=== PATIENT | female | born 1945 | race Caucasian/White ===

== ENCOUNTER 2020-03-11 01:34 | Inpatient (IN) ==
[2020-03-11] MEDS ORDERED: PIPERACILLIN/TAZOBACTAM 3,375 MG in SODIUM CHLORIDE 0.9% 100 ML IV STA (02:14)
[2020-03-11] MEDS ORDERED: SODIUM CHLORIDE 0.9% 1,000 ML IV STA (02:14)
[2020-03-11 02:23] LABS: Basophils # 0.1 10*3/uL (0.0-0.2); Basophils % 0.3 % (0.0-0.8); Eosinophils # 0.1 10*3/uL (0.0-0.87); Eosinophils % 0.3 % (0.00-10.9); Hemoglobin 12.6 GM/DL (12.0-16.0); Immature Granulocytes % 1.1 %; Immature Granulocytes Absolute 0.24 #; Lymphocytes # 0.8 10*3/uL (1.4-4.0); Lymphocytes % 3.9 % (21.3-54.2); Mean Corpuscular Volume 83.5 FL (87-102); Mean Platelet Volume 11.6 FL (9.6-12.0); Neutrophils % 88.4 % (38.7-73.9); Platelet Count 112 T/CUMM (130-400); Red Blood Count 4.31 MC/CUMM (3.8-5.5); Red Cell Distribution Width 13.2 % (9.3-17.3)
[2020-03-11 02:33] LABS: INR 1.2
[2020-03-11] MEDS: dilTIAZem Drip 125 MG/125 ML PREMIX IV SCH (02:37)
[2020-03-11 02:39] LABS: Bilirubin,Urine Negative (Negative); Blood, Urine Moderate mg/dL (Negative); Glucose,Urine (UA) Negative (Negative); Ketones,Urine Negative (Negative); Mucus,Urine Occasional /LPF (Occasional); Nitrite,Urine Negative (Negative); Protein,Urine 100 MG/DL; RBC,Urine 5 /HPF (0-4); Squamous Epithelial Cell,Urine Occasional /HPF (0-10); Urine Appearance CLOUDY (Clear); Urine Color Amber (Yellow); Urine Specific Gravity 1.013 (1.001-1.035); WBC,Urine 436 /HPF (0-6)
[2020-03-11 02:46] LABS: Alanine Aminotransferase 26 U/L (13-56); Albumin 2.3 G/DL (3.4-5.0); Alkaline Phosphatase 181 U/L (45-117); Amylase 9 U/L (25-115); Aspartate Amino Transferase 26 U/L (0-37); Blood Urea Nitrogen 34 MG/DL (7-18); Calcium 7.8 MG/DL (8.5-10.1); Estimated Glom Filtration Rate 38 ML/MIN; Ferritin 165.8 ng/ml (8-252); Glucose 79 MG/DL (74-106); Osmolality,Calculated 272.4 MOS/KG (273-304); Total Protein 5.6 G/DL (6.4-8.3); Troponin I 0.273 NG/ML (0.00-0.045)
[2020-03-11] MEDS ORDERED: POTASSIUM CHLORIDE RIDER 20 MEQ in PREMIX 1 EACH IV STA ×2 (02:56→03:02)
[2020-03-11] MEDS ORDERED: POTASSIUM CHLORIDE 20 MEQ TABLET PO STA (04:39)
[2020-03-11] MEDS ORDERED: ONDANSETRON 4 MG/2 ML VIAL IV PRN (05:15)
[2020-03-11] MEDS ORDERED: DEXTROSE 50% 25 GM/50 ML VIAL IV PRN (05:15)
[2020-03-11] MEDS ORDERED: DOCUSATE SODIUM 100 MG CAPSULE PO PRN (05:15)
[2020-03-11] MEDS ORDERED: GLUCAGON 1 MG VIAL IM PRN (05:15)
[2020-03-11] MEDS ORDERED: MAGNESIUM SULF RIDER 4 GM in PREMIX 1 EACH IV PRN (05:18)
[2020-03-11] MEDS ORDERED: MAGNESIUM SULF RIDER 2 GM in PREMIX 1 EACH IV PRN (05:18)
[2020-03-11] MEDS ORDERED: DEXTROSE 50% 25 GM/50 ML SYRINGE IV PRN (05:21)
[2020-03-11 05:24] LABS: Band Neutrophils 3 % (0-10); Hypochromasia 1+; Lymphocytes 4 % (20-55); Metamyelocytes 1 %; Microcytosis 1+; Platelet Estimate Adequate; Segmented Neutrophils 88 % (50-85); Total Cells Counted 100
[2020-03-11] MEDS: SODIUM CHLORIDE 0.9% 1,000 ML IV SCH ×3 (06:10→21:57)
[2020-03-11] MEDS: PANTOPRAZOLE 40 MG TABLET PO SCH (09:00)
[2020-03-11] MEDS: ACETAMINOPHEN 325 MG TABLET PO PRN ×2 (09:01→21:08)
[2020-03-11] MEDS: POTASSIUM CHLORIDE 20 MEQ TABLET PO PRN ×2 (09:01→11:11)
[2020-03-11] MEDS: SOTALOL 80 MG TABLET PO SCH ×2 (10:11→21:12)
[2020-03-11] MEDS: RIVAROXABAN 20 MG TABLET PO SCH (10:11)
[2020-03-11] MEDS: PIPERACILLIN/TAZOBACTAM 3,375 MG in SODIUM CHLORIDE 0.9% 100 ML IV SCH ×2 (11:50→21:08)
[2020-03-12] MEDS: SODIUM CHLORIDE 0.9% 1,000 ML IV SCH ×3 (02:15→12:58)
[2020-03-12] MEDS: dilTIAZem Drip 125 MG/125 ML PREMIX IV SCH (02:31)
[2020-03-12] MEDS: PIPERACILLIN/TAZOBACTAM 3,375 MG in SODIUM CHLORIDE 0.9% 100 ML IV SCH ×3 (04:02→18:08)
[2020-03-12 06:10] LABS: Basophils # 0.1 10*3/uL (0.0-0.2); Basophils % 0.4 % (0.0-0.8); Eosinophils # 0.2 10*3/uL (0.0-0.87); Eosinophils % 1.2 % (0.00-10.9); Hematocrit 35.5 VOL% (35.7-47.0); Hemoglobin 12.2 GM/DL (12.0-16.0); Immature Granulocytes % 6.2 %; Immature Granulocytes Absolute 0.99 #; Lymphocytes # 0.9 10*3/uL (1.4-4.0); Lymphocytes % 5.4 % (21.3-54.2); Mean Corpuscular HGB Conc 34.4 GM/DL (32-36); Mean Corpuscular Volume 84.5 FL (87-102); Monocytes % 8.8 % (1.7-12.7); Red Cell Distribution Width 13.7 % (9.3-17.3); White Blood Count 15.9 T/CUMM (4-12)
[2020-03-12 06:18] LABS: Platelet Count 85 T/CUMM (130-400)
[2020-03-12 06:31] LABS: Band Neutrophils 1 % (0-10); Eosinophils 3 % (0-10); Lymphocytes 4 % (20-55); Microcytosis Slight; Platelet Estimate Decreased; Segmented Neutrophils 86 % (50-85); Total Cells Counted 100
[2020-03-12 07:24] LABS: Albumin 1.9 G/DL (3.4-5.0); Bilirubin,Total 2.4 MG/DL (0.2-1.0); Calcium 8.2 MG/DL (8.5-10.1); Osmolality,Calculated 274.2 MOS/KG (273-304); Total Protein 5.4 G/DL (6.4-8.3)
[2020-03-12] MEDS: PANTOPRAZOLE 40 MG TABLET PO SCH (09:10)
[2020-03-12] MEDS: RIVAROXABAN 20 MG TABLET PO SCH (09:10)
[2020-03-12] MEDS: SOTALOL 80 MG TABLET PO SCH ×2 (09:10→21:57)
[2020-03-12] MEDS: MONTELUKAST 10 MG TABLET PO SCH (12:57)
[2020-03-12] MEDS: VENLAFAXINE XR 75 MG CAPSULE PO SCH (12:58)
[2020-03-13] MEDS: SODIUM CHLORIDE 0.9% 1,000 ML IV SCH ×3 (02:13→21:02)
[2020-03-13 05:37] LABS: Basophils # 0.1 10*3/uL (0.0-0.2); Basophils % 0.4 % (0.0-0.8); Eosinophils # 0.2 10*3/uL (0.0-0.87); Eosinophils % 1.1 % (0.00-10.9); Hematocrit 33.2 VOL% (35.7-47.0); Hemoglobin 11.5 GM/DL (12.0-16.0); Immature Granulocytes % 2.5 %; Immature Granulocytes Absolute 0.33 #; Lymphocytes # 1.2 10*3/uL (1.4-4.0); Lymphocytes % 9.2 % (21.3-54.2); Mean Corpuscular HGB Conc 34.6 GM/DL (32-36); Mean Corpuscular Volume 84.5 FL (87-102); Mean Platelet Volume 11.1 FL (9.6-12.0); Monocytes % 11.6 % (1.7-12.7); Neutrophils % 75.2 % (38.7-73.9); Platelet Count 111 T/CUMM (130-400); Red Blood Count 3.93 MC/CUMM (3.8-5.5); Red Cell Distribution Width 13.7 % (9.3-17.3); White Blood Count 13.4 T/CUMM (4-12)
[2020-03-13] MEDS: PIPERACILLIN/TAZOBACTAM 3,375 MG in SODIUM CHLORIDE 0.9% 100 ML IV SCH ×2 (05:51→10:53)
[2020-03-13 06:03] LABS: Osmolality,Calculated 275.1 MOS/KG (273-304)
[2020-03-13 06:10] LABS: Anisocytosis Slight; Band Neutrophils 6 % (0-10); Eosinophils 3 % (0-10); Lymphocytes 7 % (20-55); Platelet Estimate Adequate; Segmented Neutrophils 74 % (50-85); Total Cells Counted 100
[2020-03-13] MEDS: VENLAFAXINE XR 75 MG CAPSULE PO SCH (08:50)
[2020-03-13] MEDS: POTASSIUM CHLORIDE 20 MEQ TABLET PO SCH (08:50)
[2020-03-13] MEDS: SOTALOL 80 MG TABLET PO SCH ×2 (08:50→20:57)
[2020-03-13] MEDS: RIVAROXABAN 20 MG TABLET PO SCH (08:50)
[2020-03-13] MEDS: MONTELUKAST 10 MG TABLET PO SCH (08:50)
[2020-03-13] MEDS: PANTOPRAZOLE 40 MG TABLET PO SCH (08:51)
[2020-03-13] MEDS ORDERED: POTASSIUM CHLORIDE 20 MEQ TABLET PO SCH (09:00)
[2020-03-13] MEDS: MEROPENEM 500 MG in SODIUM CHLORIDE 0.9% 100 ML IV SCH (15:15)
[2020-03-14] MEDS: MEROPENEM 500 MG in SODIUM CHLORIDE 0.9% 100 ML IV SCH ×3 (00:47→14:30)
[2020-03-14 02:45] LABS: Calcium 7.9 MG/DL (8.5-10.1); Osmolality,Calculated 273.1 MOS/KG (273-304)
[2020-03-14 02:53] LABS: Basophils # 0.1 10*3/uL (0.0-0.2); Basophils % 0.5 % (0.0-0.8); Eosinophils # 0.2 10*3/uL (0.0-0.87); Eosinophils % 1.1 % (0.00-10.9); Hemoglobin 11.9 GM/DL (12.0-16.0); Immature Granulocytes % 4.3 %; Immature Granulocytes Absolute 0.63 #; Lymphocytes # 1.2 10*3/uL (1.4-4.0); Lymphocytes % 8.1 % (21.3-54.2); Mean Corpuscular Volume 84.3 FL (87-102); Mean Platelet Volume 11.1 FL (9.6-12.0); Monocytes % 9.8 % (1.7-12.7); Neutrophils % 76.2 % (38.7-73.9); Platelet Count 149 T/CUMM (130-400); Red Blood Count 4.15 MC/CUMM (3.8-5.5); Red Cell Distribution Width 14.2 % (9.3-17.3); White Blood Count 14.5 T/CUMM (4-12)
[2020-03-14] MEDS: SODIUM CHLORIDE 0.9% 1,000 ML IV SCH ×3 (06:10→21:50)
[2020-03-14 07:14] LABS: Band Neutrophils 1 % (0-10); Eosinophils 3 % (0-10); Lymphocytes 9 % (20-55); Metamyelocytes 2 %; Segmented Neutrophils 76 % (50-85); Total Cells Counted 100
[2020-03-14 07:30] LABS: Anisocytosis Slight; Macrocytosis Slight; Platelet Estimate Adequate
[2020-03-14] MEDS: MONTELUKAST 10 MG TABLET PO SCH (09:12)
[2020-03-14] MEDS: VENLAFAXINE XR 75 MG CAPSULE PO SCH (09:12)
[2020-03-14] MEDS: PANTOPRAZOLE 40 MG TABLET PO SCH (09:12)
[2020-03-14] MEDS: RIVAROXABAN 20 MG TABLET PO SCH (09:12)
[2020-03-14] MEDS: SOTALOL 80 MG TABLET PO SCH ×2 (09:12→21:42)
[2020-03-14] MEDS: POTASSIUM CHLORIDE 20 MEQ TABLET PO SCH (09:12)
[2020-03-14] MEDS: ACETAMINOPHEN 325 MG TABLET PO PRN (22:07)
[2020-03-15] MEDS: MEROPENEM 500 MG in SODIUM CHLORIDE 0.9% 100 ML IV SCH ×3 (01:18→17:34)
[2020-03-15] MEDS: ZALEPLON 5 MG CAPSULE PO PRN ×2 (01:23→21:20)
[2020-03-15] MEDS: SODIUM CHLORIDE 0.9% 1,000 ML IV SCH ×3 (01:56→19:00)
[2020-03-15 06:06] LABS: Basophils # 0.1 10*3/uL (0.0-0.2); Basophils % 0.5 % (0.0-0.8); Eosinophils # 0.2 10*3/uL (0.0-0.87); Eosinophils % 1.1 % (0.00-10.9); Hematocrit 39.4 VOL% (35.7-47.0); Immature Granulocytes Absolute 1.11 #; Lymphocytes # 1.6 10*3/uL (1.4-4.0); Lymphocytes % 8.4 % (21.3-54.2); Mean Corpuscular Volume 88.5 FL (87-102); Mean Platelet Volume 10.3 FL (9.6-12.0); Monocytes % 8.5 % (1.7-12.7); Neutrophils % 75.5 % (38.7-73.9); Platelet Count 243 T/CUMM (130-400); Red Blood Count 4.45 MC/CUMM (3.8-5.5); Red Cell Distribution Width 14.2 % (9.3-17.3); White Blood Count 18.6 T/CUMM (4-12)
[2020-03-15 06:38] LABS: Calcium 7.8 MG/DL (8.5-10.1); Osmolality,Calculated 270.2 MOS/KG (273-304)
[2020-03-15 06:39] LABS: Osmolality,Calculated 270.2 MOS/KG (273-304)
[2020-03-15 07:10] LABS: Eosinophils 1 % (0-10); Lymphocytes 7 % (20-55); Platelet Estimate Normal; Polychromasia Slight; Segmented Neutrophils 86 % (50-85); Total Cells Counted 100
[2020-03-15] MEDS: SOTALOL 80 MG TABLET PO SCH ×2 (09:22→21:20)
[2020-03-15] MEDS: PANTOPRAZOLE 40 MG TABLET PO SCH (09:22)
[2020-03-15] MEDS: VENLAFAXINE XR 75 MG CAPSULE PO SCH (09:23)
[2020-03-15] MEDS: RIVAROXABAN 20 MG TABLET PO SCH (09:23)
[2020-03-15] MEDS: POTASSIUM CHLORIDE 20 MEQ TABLET PO SCH (09:23)
[2020-03-15] MEDS: MONTELUKAST 10 MG TABLET PO SCH (09:23)
[2020-03-15] MEDS: ACETAMINOPHEN 325 MG TABLET PO PRN (21:23)
[2020-03-16] MEDS: MEROPENEM 500 MG in SODIUM CHLORIDE 0.9% 100 ML IV SCH ×3 (01:23→16:21)
[2020-03-16] MEDS: SODIUM CHLORIDE 0.9% 1,000 ML IV SCH ×4 (01:23→18:11)
[2020-03-16] MEDS: ACETAMINOPHEN 325 MG TABLET PO PRN ×3 (03:12→22:11)
[2020-03-16 08:14] LABS: Basophils # 0.1 10*3/uL (0.0-0.2); Basophils % 0.3 % (0.0-0.8); Eosinophils # 0.2 10*3/uL (0.0-0.87); Hematocrit 36.5 VOL% (35.7-47.0); Hemoglobin 12.8 GM/DL (12.0-16.0); Immature Granulocytes % 5.1 %; Immature Granulocytes Absolute 1.08 #; Lymphocytes # 1.4 10*3/uL (1.4-4.0); Lymphocytes % 6.4 % (21.3-54.2); Mean Corpuscular HGB Conc 35.1 GM/DL (32-36); Mean Corpuscular Volume 84.3 FL (87-102); Mean Platelet Volume 10.5 FL (9.6-12.0); Monocytes % 6.9 % (1.7-12.7); Neutrophils % 80.3 % (38.7-73.9); Platelet Count 242 T/CUMM (130-400); Red Blood Count 4.33 MC/CUMM (3.8-5.5); Red Cell Distribution Width 13.9 % (9.3-17.3); White Blood Count 21.2 T/CUMM (4-12)
[2020-03-16 08:43] LABS: Calcium 7.9 MG/DL (8.5-10.1); Osmolality,Calculated 268.2 MOS/KG (273-304)
[2020-03-16] MEDS: POTASSIUM CHLORIDE 20 MEQ TABLET PO SCH (09:16)
[2020-03-16] MEDS: PANTOPRAZOLE 40 MG TABLET PO SCH (09:16)
[2020-03-16] MEDS: SOTALOL 80 MG TABLET PO SCH ×2 (09:16→22:08)
[2020-03-16] MEDS: VENLAFAXINE XR 75 MG CAPSULE PO SCH (09:16)
[2020-03-16] MEDS: MONTELUKAST 10 MG TABLET PO SCH (09:16)
[2020-03-16] MEDS: NYSTATIN 500,000 UNIT/5 ML UDCUP SWISH/SWAL SCH ×4 (10:00→22:11)
[2020-03-16 11:30] LABS: Calcium 7.8 MG/DL (8.5-10.1); Osmolality,Calculated 270.2 MOS/KG (273-304)
[2020-03-16 11:43] LABS: Lymphocytes 4 % (20-55); Metamyelocytes 1 %; Myelocytes 1 %; Polychromasia Slight; Segmented Neutrophils 88 % (50-85); Total Cells Counted 100
[2020-03-16 11:44] LABS: Platelet Estimate Normal
[2020-03-16 13:47] LABS: Bacteria,Urine Occasional /HPF (Few); Bilirubin,Urine Negative (Negative); Blood, Urine Moderate mg/dL (Negative); Glucose,Urine (UA) Negative (Negative); Ketones,Urine Negative (Negative); Mucus,Urine Occasional /LPF (Occasional); Nitrite,Urine Negative (Negative); Protein,Urine Negative; RBC,Urine 6 /HPF (0-4); Squamous Epithelial Cell,Urine Occasional /HPF (0-10); Urine Appearance Slightly Hazy (Clear); Urine Color Yellow (Yellow); Urine Specific Gravity 1.011 (1.001-1.035); Urine Urobilinogen < 2.0 EU/DL (0.2-1.0); WBC,Urine 49 /HPF (0-6)
[2020-03-16] MEDS: ZALEPLON 5 MG CAPSULE PO PRN (22:15)
[2020-03-17] MEDS: MEROPENEM 500 MG in SODIUM CHLORIDE 0.9% 100 ML IV SCH ×3 (00:58→16:35)
[2020-03-17 05:25] LABS: Basophils # 0.1 10*3/uL (0.0-0.2); Basophils % 0.4 % (0.0-0.8); Eosinophils # 0.2 10*3/uL (0.0-0.87); Hematocrit 37.9 VOL% (35.7-47.0); Hemoglobin 12.2 GM/DL (12.0-16.0); Immature Granulocytes % 4.9 %; Immature Granulocytes Absolute 1.01 #; Lymphocytes # 1.5 10*3/uL (1.4-4.0); Lymphocytes % 7.4 % (21.3-54.2); Mean Corpuscular HGB Conc 32.2 GM/DL (32-36); Mean Corpuscular Volume 89.6 FL (87-102); Mean Platelet Volume 9.9 FL (9.6-12.0); Monocytes % 7.6 % (1.7-12.7); Neutrophils % 78.7 % (38.7-73.9); Platelet Count 364 T/CUMM (130-400); Red Blood Count 4.23 MC/CUMM (3.8-5.5); Red Cell Distribution Width 14.2 % (9.3-17.3); White Blood Count 20.6 T/CUMM (4-12)
[2020-03-17 06:04] LABS: Band Neutrophils 1 % (0-10); Hypochromasia 1+; Lymphocytes 10 % (20-55); Macrocytosis Slight; Platelet Estimate Normal; Segmented Neutrophils 86 % (50-85); Total Cells Counted 100
[2020-03-17] MEDS: RIVAROXABAN 20 MG TABLET PO SCH (09:08)
[2020-03-17] MEDS: SOTALOL 80 MG TABLET PO SCH ×2 (09:08→21:34)
[2020-03-17] MEDS: VENLAFAXINE XR 75 MG CAPSULE PO SCH (09:09)
[2020-03-17] MEDS: PANTOPRAZOLE 40 MG TABLET PO SCH (09:09)
[2020-03-17] MEDS: POTASSIUM CHLORIDE 20 MEQ TABLET PO SCH (09:09)
[2020-03-17] MEDS: MONTELUKAST 10 MG TABLET PO SCH (09:09)
[2020-03-17] MEDS: NYSTATIN 500,000 UNIT/5 ML UDCUP SWISH/SWAL SCH ×4 (09:09→21:34)
[2020-03-17] MEDS: ACETAMINOPHEN 325 MG TABLET PO PRN (14:16)
[2020-03-17] MEDS: SODIUM CHLORIDE 0.9% 1,000 ML IV SCH (14:33)
[2020-03-18] MEDS: MEROPENEM 500 MG in SODIUM CHLORIDE 0.9% 100 ML IV SCH ×3 (02:03→16:03)
[2020-03-18 05:49] LABS: Basophils # 0.1 10*3/uL (0.0-0.2); Basophils % 0.5 % (0.0-0.8); Eosinophils # 0.1 10*3/uL (0.0-0.87); Eosinophils % 0.5 % (0.00-10.9); Hematocrit 34.7 VOL% (35.7-47.0); Hemoglobin 11.5 GM/DL (12.0-16.0); Immature Granulocytes % 3.1 %; Lymphocytes # 1.5 10*3/uL (1.4-4.0); Lymphocytes % 7.8 % (21.3-54.2); Mean Corpuscular HGB Conc 33.1 GM/DL (32-36); Mean Corpuscular Volume 86.5 FL (87-102); Mean Platelet Volume 9.8 FL (9.6-12.0); Monocytes % 8.2 % (1.7-12.7); Neutrophils % 79.9 % (38.7-73.9); Platelet Count 457 T/CUMM (130-400); Red Blood Count 4.01 MC/CUMM (3.8-5.5); White Blood Count 19.7 T/CUMM (4-12)
[2020-03-18 06:07] LABS: Calcium 7.8 MG/DL (8.5-10.1); Osmolality,Calculated 267.2 MOS/KG (273-304)
[2020-03-18 06:34] LABS: Band Neutrophils 1 % (0-10); Lymphocytes 6 % (20-55); Segmented Neutrophils 88 % (50-85); Total Cells Counted 100
[2020-03-18 06:35] LABS: Hypochromasia 1+; Microcytosis 1+; Platelet Estimate Adequate
[2020-03-18] MEDS ORDERED: MIDAZOLAM 10 MG/2 ML VIAL ONE (07:50)
[2020-03-18] MEDS: VENLAFAXINE XR 75 MG CAPSULE PO SCH (09:34)
[2020-03-18] MEDS: amLODIPine 5 MG TABLET PO SCH (09:34)
[2020-03-18] MEDS: RIVAROXABAN 20 MG TABLET PO SCH (09:34)
[2020-03-18] MEDS: PANTOPRAZOLE 40 MG TABLET PO SCH (09:34)
[2020-03-18] MEDS: MONTELUKAST 10 MG TABLET PO SCH (09:35)
[2020-03-18] MEDS: POTASSIUM CHLORIDE 20 MEQ TABLET PO SCH (09:38)
[2020-03-18] MEDS: NYSTATIN 500,000 UNIT/5 ML UDCUP SWISH/SWAL SCH ×4 (09:45→21:16)
[2020-03-18] MEDS: SOTALOL 80 MG TABLET PO SCH ×2 (09:45→21:16)
[2020-03-19] MEDS: MEROPENEM 500 MG in SODIUM CHLORIDE 0.9% 100 ML IV SCH ×2 (00:14→09:18)
[2020-03-19 06:33] LABS: Basophils # 0.1 10*3/uL (0.0-0.2); Basophils % 0.4 % (0.0-0.8); Eosinophils # 0.1 10*3/uL (0.0-0.87); Eosinophils % 0.8 % (0.00-10.9); Hematocrit 33.4 VOL% (35.7-47.0); Hemoglobin 11.1 GM/DL (12.0-16.0); Immature Granulocytes % 2.3 %; Immature Granulocytes Absolute 0.39 #; Lymphocytes # 1.3 10*3/uL (1.4-4.0); Lymphocytes % 7.8 % (21.3-54.2); Mean Corpuscular HGB Conc 33.2 GM/DL (32-36); Mean Corpuscular Volume 85.6 FL (87-102); Mean Platelet Volume 9.9 FL (9.6-12.0); Monocytes % 8.9 % (1.7-12.7); Neutrophils % 79.8 % (38.7-73.9); Platelet Count 532 T/CUMM (130-400); Red Cell Distribution Width 14.2 % (9.3-17.3); White Blood Count 16.9 T/CUMM (4-12)
[2020-03-19 06:49] LABS: Calcium 7.7 MG/DL (8.5-10.1); Osmolality,Calculated 266.2 MOS/KG (273-304)
[2020-03-19] MEDS: POTASSIUM CHLORIDE 20 MEQ TABLET PO SCH (09:17)
[2020-03-19] MEDS: SOTALOL 80 MG TABLET PO SCH (09:17)
[2020-03-19] MEDS: MONTELUKAST 10 MG TABLET PO SCH (09:17)
[2020-03-19] MEDS: NYSTATIN 500,000 UNIT/5 ML UDCUP SWISH/SWAL SCH (09:17)
[2020-03-19] MEDS: VENLAFAXINE XR 75 MG CAPSULE PO SCH (09:17)
[2020-03-19] MEDS: RIVAROXABAN 20 MG TABLET PO SCH (09:17)
[2020-03-19] MEDS: amLODIPine 5 MG TABLET PO SCH (09:18)
[2020-03-19] MEDS: PANTOPRAZOLE 40 MG TABLET PO SCH (09:18)
[2020-03-19 12:12] VITALS: BP 137/68
== END 2020-03-19 13:25 | DRG 872 ==
LOC: EDBD → EDUNIT# → N.ED 01:34 → SUATTDRO 04:27 → N.EDINP 04:27 → N.TELEN 06:35
PROVIDERS: ADMIT Internal Medicine; ATTEND Internal Medicine Geriatric Medicine